=== PATIENT | female | born 1965 | race American Indian/Alaskan Native ===

== ENCOUNTER 2019-03-16 08:57 | Emergency (ER) | payer SELFPAY ==
--- NOTE | 2019-03-16 09:46 | Emergency Department Report ---
ED General Adult HPI - General Chief complaint: Medical Clearance Stated complaint: MED REFILL Time Seen by Provider: 03/16/19 09:39 Source: patient Mode of arrival: Ambulatory Limitations: No Limitations - History of Present Illness Initial comments: Mrs. Huang is a 53-year-old female with history of schizophrenia multiple personality disorder and insulin-dependent diabetes who recently was released from [facility] after a one-year incarceration. Her relative is at the bedside assisting her. She desires prescription for insulin therapy. She is unable to recall the name or doses of her medications. -: Gradual Improves with: none Worsens with: none Associated Symptoms: denies other symptoms - Related Data Home Medications Medication Instructions Recorded Confirmed Last Taken Divalproex ER [DepaKOTE ER] 1,000 mg PO QDAY 06/14/16 06/14/16 Unknown FLUoxetine HCL [FLUoxetine] 10 mg PO DAILY 06/14/16 06/14/16 Unknown Lurasidone HCl [Latuda] 80 mg PO DAILY 06/14/16 06/14/16 Unknown hydrOXYzine PAMOATE [Vistaril] 50 mg PO DAILY 06/14/16 06/14/16 Unknown Previous Rx's Medication Instructions Recorded Last Taken Type Insulin Glargine [Lantus] 10 unit SUB-Q QHS #1 vial 03/16/19 Unknown Rx Allergies Allergy/AdvReac Type Severity Reaction Status Date / Time Penicillins Allergy Unknown Verified 03/16/19 09:18 ED Review of Systems ROS: Stated complaint: MED REFILL Other details as noted in HPI Constitutional: denies: fever, malaise Respiratory: denies: cough Cardiovascular: denies: chest pain Gastrointestinal: denies: abdominal pain Neurological: denies: headache ED Past Medical Hx - Past Medical History Hx Hypertension: Yes Hx Diabetes: Yes Hx Psychiatric Treatment: Yes (Depression, Anxiety, Bipolar, Schizophrenia) Additional medical history: anemia, bilat hip fx, chronic lower back pain. - Surgical History Additional Surgical History: Bilateral hip fx repair - Social History Smoking Status: Current Every Day Smoker - Medications Home Medications: Home Medications Medication Instructions Recorded Confirmed Last Taken Type Divalproex ER [DepaKOTE ER] 1,000 mg PO QDAY 06/14/16 06/14/16 Unknown History FLUoxetine HCL [FLUoxetine] 10 mg PO DAILY 06/14/16 06/14/16 Unknown History Lurasidone HCl [Latuda] 80 mg PO DAILY 06/14/16 06/14/16 Unknown History hydrOXYzine PAMOATE [Vistaril] 50 mg PO DAILY 06/14/16 06/14/16 Unknown History Insulin Glargine [Lantus] 10 unit SUB-Q QHS #1 vial 03/16/19 Unknown Rx ED Physical Exam - General Limitations: No Limitations General appearance: alert, in no apparent distress - Head Head exam: Present: atraumatic, normocephalic - Eye Eye exam: Present: normal appearance - ENT ENT exam: Present: mucous membranes moist - Neck Neck exam: Present: normal inspection - Respiratory Respiratory exam: Absent: respiratory distress - Neurological Exam Neurological exam: Present: alert, oriented X3 - Psychiatric Psychiatric exam: Present: normal mood, flat affect - Skin Skin exam: Present: normal color ED Medical Decision Making - Medical Decision Making Mrs. Huang presents with request for medication refill. I have prescribed Lantus 10 units at bedtime. I recommended urgent evaluation by M.D. primary care physician. I provided referrals to [facility] as well as [facility] considering patient's previous diagnosis of schizophrenia and multiple personality disorder. Critical care attestation.: If time is entered above; I have spent that time in minutes in the direct care of this critically ill patient, excluding procedure time. ED Disposition Clinical Impression: Medication refill Disposition: [id number] TO HOME OR SELFCARE Is pt being admited?: No Does the pt Need Aspirin: No Condition: Stable Prescriptions: Insulin Glargine [Lantus] 10 unit SUB-Q QHS #1 vial Referrals: [facility] [Outside] - 3-5 Days [facility] [Outside] - 3-5 Days
== END 2019-03-16 10:13 | disposition home or self-care (01) ==
LOC: ED 08:57
DX: E11.9 Type 2 diabetes mellitus without complications (principal); F20.9 Schizophrenia, unspecified; Z88.0 Allergy status to penicillin
CPT/HCPCS: 99281